=== PATIENT | female | born 1960 | race African-American/Black ===

== ENCOUNTER 2020-02-26 17:53 | Inpatient (IN) ==
[2020-02-26] MEDS ORDERED: LABETALOL IV ONE (18:25)
--- NOTE | 2020-02-26 19:09 | PROVIDER DOCUMENTATION ---
This chart was entered by Grace Moctezuma Scribe, acting as scribe for Sanchez Lainez MD. HPI-Headache - General Source: patient - History of Present Illness-Headache Headache Location: reports: frontal Quality of Pain: reports: sharp Severity: reports: severe Onset/Duration: reports: 2 days ago Timing: reports: still present, constant Headache Context: reports: nothing Headache History: reports: occasional headaches Any recent trauma/injury?: reports: none Headache severity at the maximum: severe Headache Exacerbated by:: reports: nothing Modifying Factors: improves with: analgesics (tylenol without relief) Associated Symptoms: reports: headache, confusion. denies: short of breath, decreased ability to walk or stand, fatigue, nausea, numbness in legs/feet, slurred speech, trouble walking, vomiting, vision changes, weakness Similar Symptoms Previously?: No Recently seen or treated by another doctor?: No <Sanchez Lainez - Last Filed: 02/26/20 19:31> - General Source: patient <iRzwana HollidayBoogie - Last Filed: 02/26/20 22:57> - General Chief Complaint: Headache Stated Complaint: HEADACHE Time Seen by Provider: 02/26/20 18:14 Allergies/Adverse Reactions: Patient Allergies Allergy/AdvReac Type Severity Reaction Status Date / Time No Known Allergies Allergy Verified 04/10/14 06:42 Home Medications: Home Medication List Medication Instructions Recorded Confirmed Last Taken Type Albuterol Sulfate Inhaler 2 puff INH Q6H PRN PRN #1 inhaler 04/10/14 04/22/15 Unknown Rx [Ventolin Hfa] Amlodipine [Norvasc] 5 mg PO DAILY 04/10/14 04/22/15 04/09/14 History Lisinopril/Hydrochlorothiazide 1 tab PO DAILY 04/10/14 04/22/15 04/09/14 History [Lisinopril-Hctz 20-25 mg Tab] Metformin HCl 1,000 mg PO BID 04/10/14 04/22/15 04/09/14 History Allopurinol 1 tab PO DAILY 04/22/15 04/22/15 Unknown History Amoxicillin/Pot Clavulanate 875 mg PO Q12HR #14 tablet 04/22/15 Unknown Rx [Augmentin] Carvedilol 1 tab PO BID 04/22/15 04/22/15 Unknown History Cephalexin 1 cap PO TID 04/22/15 04/22/15 Unknown History Hydrocodone/Acetaminophen [[place] 1 each PO Q4-6H PRN PRN #20 tablet 04/22/15 Unknown Rx 7.5-325 Tablet] Methylprednisolone [Medrol Dosepak] 4 mg PO DIRECTED #1 package 04/22/15 Unknown Rx Omeprazole 1 tab PO DAILY 04/22/15 04/22/15 Unknown History - History of Present Illness-Headache Nature of Presenting Problem: pt is a 59 yr old female presenting with 2 day complaint of constant, sharp frontal headache. pt denies any nausea, vomiting, denies vision changes, admits she feels confused. pt denies hx of headaches, admits hx of HTM and diabetes. pt reports no relief with Tylenol. (Sanchez Lainez) Review of Systems - Adult - REVIEW OF SYSTEMS - ADULT Constitutional: denies: chills, fever Eyes: denies: blurred vision, double vision Ears, Nose, Mouth & Throat: denies: ear pain, sinus problem, throat pain Cardiovascular: denies: chest pain, palpitations, syncope Respiratory: denies: cough, shortness of breath Gastrointestinal: denies: nausea, vomiting Genitourinary: reports: no symptoms reported Musculoskeletal: reports: no symptoms reported Integumentary: reports: no symptoms reported Neurological: reports: headache/migraines, other (confusion). denies: dizziness/vertigo, syncope Psychiatric: reports: no symptoms reported Endocrine: reports: no symptoms reported Hematologic/Lymphatic: reports: no symptoms reported Allergic/Immunologic: reports: no symptoms reported All Other Systems: Reviewed and Negative <Sanchez Lainez - Last Filed: 02/26/20 19:31> Past History - Adult - PAST MEDICAL HISTORY-ADULT Review of Records: reports: Nursing Assessment Review, Medications Reviewed, Social history reviewed & non-contributory. Major Childhood Illnesses: reports: denies history Cardiovascular: reports: HTN Respiratory: reports: bronchitis Gastrointestinal: reports: denies history Obstetrical/Gynecological: reports: endometriosis Genitourinary: reports: denies history Musculoskeletal: reports: denies history Neurological: reports: denies history Endocrine/Immune: reports: Diabetes Other Conditions: reports: denies history - PRIOR SURGERIES/PROCEDURES Surgical/Procedure History: reports: - IMMUNIZATION STATUS Childhood Immunizations: See Nurse Assessment Flu Vaccine: See Nurse Assessment - FAMILY HISTORY Family History: reviewed, not pertinent - SOCIAL HISTORY Smoking: denies Substance Use: denies <Sanchez Lainez - Last Filed: 02/26/20 19:31> Physical Exam- Neurological - Physical Exam-Neuro Initial Vital Signs Reviewed: Yes General Appearance: alert, no apparent distress, obese, slow to respond (apeears to have to think before responding) Eye Exam: left eye: normal inspection, PERRL HENMT: normocephalic/atraumatic Head Injury: no evidence of injury Neck: non-tender, full range of motion, supple, normal inspection Respiratory: chest non-tender, lungs clear, normal breath sounds Cardiovascular: normal peripheral pulses, regular rate, rhythm Abdominal Exam: normal bowel sounds, non tender, soft Lymphatic: no adenopathy Peripheral Pulses: radial (R): 2+, radial (L): 2+ Extremity: normal range of motion, non-tender, normal inspection maintenance clerk Exam: normal hearing, normal speech, PERRL Motor/Sensory: no motor deficit, no sensory deficit Neurologic: other (CN II-XII intact) Integumentary: normal color, normal turgor, warm/dry Psych/Mental Status: normal mood/affect - Glascow Coma Scale Best Eye Response: (4) open spontaneously Best Verbal Response: (4) confused conversation (slightly confused) Best Motor Response: (6) obeys commands Total Glascow Score: 14 <Sanchez Lainez - Last Filed: 02/26/20 19:31> Progress - CT/MRI 1 CT Study: Head Impression: Normal ( Patient: NOAH MASON APARNA Date: 02/26/20MR#: [id number] : 1960DM Status: REG [facility]#: [id number] Age/Sex: 59/FRoom/Bed: Loc: ED Ordering Physician: Sanchez Lainez MD Family Physician: Rafita Leach MD Reason for Procedure: HTN, H/A Signed CT HEAD W/O CONTRAST - 02/26/2020 INDICATION: HTN, H/A COMPARISON: None FINDINGS: The ventricles and sulci are normal in size and contour. There is mild to moderate periventricular white matter chronic microvascular ischemia. No intracranial mass or hemorrhage. The skull is intact. The sinuses mastoids and middle ears are clear. IMPRESSION: No acute disease. This exam was performed using automated exposure control, adjustment of mA or kV according to patient size, and/or use of iterative reconstruction technique Electronically signed by Que Chavez 02/26/2020 7:07 PM 02/26/201906 Interpreting Physician: Que Mukherjee MD Dictated Date/Time: 02/26/201902 cc: Sanchez Lainez MD; Rafita Leach MD) Comparison with other Films: no prior study - CHANGE OF SHIFT REPORT (ED Provider) 1 Report Given and Care Transferred to:: Mg Time of Transfer: 19:00 Items Pending: Labs <Sanchez Lainez - Last Filed: 02/26/20 19:31> - PLAN OF CARE/RESULTS Result Diagrams: 02/26/20 19:19 02/26/20 19:19 - REASSESSMENT Reassessment #1 Time Reassessed: 22:51 Status: unchanged (Patient notes that her headache is persistent. BP remains gregg vated despite labetalol and clonidine. Will admit patient to Hospitalist service.) <Rizwana Holliday - Last Filed: 02/26/20 22:57> - PLAN OF CARE/RESULTS Progress/Plan/Lab Results: Vital Signs - 8 hr 02/26/20 18:00 02/26/20 18:39 02/26/20 19:31 Temperature 97.9 F Pulse Rate 83 97 H 98 H Respiratory Rate 16 18 15 Blood Pressure 219/126 280/174 207/119 O2 Sat by Pulse Oximetry 96 95 95 02/26/20 19:45 02/26/20 20:00 02/26/20 20:15 Temperature Pulse Rate 95 H 96 H 97 H Respiratory Rate 18 14 20 Blood Pressure 208/120 175/108 183/135 O2 Sat by Pulse Oximetry 93 L 95 91 L 02/26/20 20:45 02/26/20 22:04 Temperature Pulse Rate 96 H 88 Respiratory Rate 12 20 Blood Pressure 218/117 214/119 O2 Sat by Pulse Oximetry 97 99 Laboratory Results - last 24 hr 02/26/20 02/26/20 02/26/20 18:49 19:19 19:19 WBC 7.89 RBC 5.14 Hgb 13.8 Hct 43.5 MCV 84.6 MCH 26.8 L MCHC 31.7 L RDW Std Deviation 16.5 H Plt Count 231 MPV Not Reportable Immature Gran % (Auto) 0.4 Neut % (Auto) 87.2 H Lymph % (Auto) 4.8 L [place] % (Auto) 5.1 Eos % (Auto) 2.5 Baso % (Auto) 0.0 Immature Gran # (Auto) 0.03 Neut # (Auto) 6.88 H Lymph # (Auto) 0.38 L [place] # (Auto) 0.40 Eos # (Auto) 0.20 Baso # (Auto) 0.00 Sodium 132 L Potassium 4.8 Chloride 89 L Carbon Dioxide 27 Anion Gap 16 BUN 37 H Creatinine 1.6 H Estimated GFR/1.73 m2 40 BUN/Creatinine Ratio 23 Glucose 524 H* POC Glucose 500 H Calculated Osmolality 297 Calcium 9.0 Total Bilirubin 0.62 AST 16 ALT 22 Alkaline Phosphatase 89 Total Protein 6.6 Albumin 4.2 Globulin 2.4 Albumin/Globulin Ratio 1.8 Acetone Level NEGATIVE Orders Category Date Time Status Cardiac Monitoring DIRECTED Care 02/26/20 18:[address] HEAD W/O CONTRAST [CT] Stat Exams 02/26/20 18:25 Completed CBC WITH DIFF [HEME] Stat Lab 02/26/20 19:19 Completed COMPREHENSIVE METABOLIC PANEL [CHEM] Stat Lab 02/26/20 19:19 Completed Ketone [ACETONE SERUM] [CHEM] Stat Lab 02/26/20 19:19 Completed Clonidine [Catapres] Med 02/26/20 20:31 Discontinued 0.1 mg PO NOW ONE Insulin Human Regular [Humulin R] Med 02/26/20 20:48 Discontinued 8 unit IV NOW ONE Labetalol Med 02/26/20 18:25 Discontinued 20 mg IV NOW ONE Labetalol 1 mg/ml Drip Med 02/26/20 23:00 Ordered 0.9% Sodium Chloride Inj [Ns] 160 ml Labetalol 200 mg IV As Directed EKG [EKG] Stat Ther 02/26/20 18:25 Ordered Departure <Sanchez Lainez - Last Filed: 02/26/20 19:31> - Departure Date of Disposition Decision: 02/26/20 Time of Disposition Decision: 22:54 Certified Medical Emergency: Emergent - Critical Care Note This patient required my direct & personal management of CC.: No <Rizwana Holliday - Last Filed: 02/26/20 22:57> - Departure DIAGNOSIS: Hypertensive urgency Disposition: ADMITTED INPATIENT 09 Condition: Serious Referrals and Follow-Ups: Rafita Leach MD [Primary Care Provider] - Attestation - Physician/ DESI Attestation Patient care was provided by Advanced Practice Provider:: No The physician spent face to face time with patient:: Yes Advanced Practice Provider documentation review:: Supervising physician onsite and consulted in the evaluation and care of this patient. The physician did have a face to face encounter with the patient. <Sanchez Lainez - Last Filed: 02/26/20 19:31> - Physician/ DESI Attestation Patient care was provided by Advanced Practice Provider:: No The physician spent face to face time with patient:: Yes Advanced Practice Provider documentation review:: Supervising physician onsite and consulted in the evaluation and care of this patient. The physician did have a face to face encounter with the patient. <Rizwana Holliday - Last Filed: 02/26/20 22:57> This chart was documented by the indicated scribe, (Grace Moctezuma Scribe) and accurately reflects the services I performed and decisions made by me, Sanchez Lainez MD, as attested by the provider's signature.
[2020-02-26 19:45] LABS: EOS% 2.5 % (0.0-10.0); HEMATOCRIT 43.5 % (37.0-47.0); HEMOGLOBIN 13.8 g/dL (12.0-16.0); IMM GRAN# 0.03 X1000 (0.0-0.04); IMM GRAN% 0.4 % (0.0-0.5); LYMPH# 0.38 X1000 (1.2-3.4); LYMPH% 4.8 % (20.5-51.1); MCH 26.8 PG (27-31); MCHC 31.7 g/dL (33-37); MCV 84.6 FL (81-99); MONO% 5.1 % (1.7-9.3); NEUT# 6.88 X1000 (1.4-6.5); NEUT% 87.2 % (42.2-75.2); PLT 231 X1000 (130-400); RBC 5.14 XMIL (4.2-5.4); RDW 16.5 % (11.5-14.5); WBC 7.89 X1000 (4.8-10.8)
[2020-02-26] MEDS ORDERED: CATAPRES PO ONE (20:31)
[2020-02-26 20:40] LABS: ACETONE SERUM NEGATIVE (NEGATIVE); AGAP 16; ALB/GLOB RATIO 1.8; ALBUMIN 4.2 g/dL (3.5-5.0); ALKALINE PHOSPHATASE 89 U/L (32-104); BUN 37 mg/dL (8-22); CHLORIDE 89 mmol/L (98-107); COSMO 297; CREATININE 1.6 mg/dL (0.5-0.9); ESTIMATED GFR 40; GLUCOSE 524 mg/dL (70-104); GOT 16 U/L (10-30); GPT 22 U/L (10-36); POTASSIUM 4.8 mmol/L (3.5-5.1); SODIUM 132 mmol/L (136-145); TCO2 27 mmol/L (25-35); TOTAL BILIRUBIN 0.62 mg/dL (0.20-1.00); TOTAL PROTEIN 6.6 g/dL (6.3-8.3)
[2020-02-26] MEDS ORDERED: HUMULIN R IV ONE (20:48)
[2020-02-26] MEDS ORDERED: LABETALOL 200 MG in NS 160 ML IV SCH (23:00)
[2020-02-26] MEDS ORDERED: TYLENOL PO PRN (23:33)
[2020-02-26] MEDS ORDERED: ZOFRAN IV PRN (23:33)
[2020-02-26] MEDS ORDERED: NS 500 ML IV ONE (23:33)
[2020-02-26 23:52] LABS: CHOLESTEROL 174 mg/dL (0-200); HDL 70 mg/dL (45-65); LDL 66 mg/dL; TRIGLYCERIDES 191 mg/dL (35-135); VLDL 38 mg/dL
[2020-02-26 23:56] LABS: HEMOGLOBIN A1C 8.6 % (4.8-6.0)
[2020-02-27] MEDS: HUMALOG SUBQ SCH ×7 (00:03→21:36)
[2020-02-27] MEDS: LOVENOX SUBQ SCH ×2 (00:04→23:40)
--- NOTE | 2020-02-27 02:14 | HISTORY AND PHYSICAL ---
CHIEF COMPLAINT: What stated is headache, but I believe it is actually altered mental status. HPI: This is a 59-year-old female who reportedly came in today with a headache. From what I understand she had been having complaint of constant, sharp, frontal headache. Had no nausea or vomiting or visual changes. She admitted that she felt confused on arrival to the ER provider. During my examination she was unable to even verify her name. She was able to follow all commands, but verbally while she would talk she did not answer questions appropriately. She has a past medical history of hypertension and diabetes, also endometriosis per her ER charting. Otherwise I was unable to verify any other medical history. A CT scan was obtained in the emergency room which showed no acute disease, no hemorrhage. Chest x-ray showed cardiomegaly. She will be admitted for further evaluation and treatment. PAST MEDICAL HISTORY: See HPI. PREVIOUS SURGICAL HISTORY: . SOCIAL HISTORY: I am honestly unsure. She stated that she does not smoke, drink, or use illicit drugs. FAMILY HISTORY: This was unobtainable. ALLERGIES: No known drug allergies. HOME MEDICATIONS: This was unobtainable. An order was placed for nursing to identify home medications from the pharmacy and placed in the computer. These will be restarted when appropriate. REVIEW OF SYSTEMS: This was limited per the patient's condition. She did say yes when questioned about having a headache. PHYSICAL EXAMINATION: VITAL SIGNS: Temperature 97.9, pulse 88, respirations 20, blood pressure 214/119. Oxygen saturation 99% on 2L nasal cannula. GENERAL: Very confused 59-year-old female. She is lying on the ER stretcher. She is disoriented x3, however, she does follow commands. HEENT: Head is atraumatic, normocephalic. Pupils equal, round, reactive to light. Extraocular eye movements intact. Sclera anicteric. Conjunctiva pink. Oral mucosa appears dry. NECK: Supple. No JVD. No hepatojugular reflux. Trachea is midline. No cervical lymphadenopathy. CARDIAC: S1, S2 appreciated. No murmurs, gallops or rubs. LUNGS: Expiratory wheeze noted. No rhonchi, no rales. Symmetrical rise and fall respirations. ABDOMEN: Protuberant, soft, nondistended, nontender. Bowel sounds present all 4 quadrants, normoactive. No pulsatile masses or organomegaly. EXTREMITIES: No clubbing or cyanosis, 1+ pitting edema bilateral lower extremities. NEUROLOGICAL: Disoriented x3, however, does follow commands. Cranial nerves 2- 12 appear to be grossly intact. DIAGNOSTIC DATA: CT of the head is grossly normal. Chest x-ray cardiomegaly. LABORATORY DATA: CBC within normal limits. Sodium 132, potassium 4.8, chloride 89, carbon dioxide 27, BUN 37, creatinine 1.6, glucose 524. Acetone level is negative. ASSESSMENT: 1. Cerebrovascular accident versus posterior reversible encephalopathy syndrome. 2. Poorly controlled diabetes mellitus type 2. 3. Acute kidney injury versus chronic kidney disease stage III. 4. Hypertensive heart disease. PLAN: Admit patient to ICU. Will place her on a labetalol drip. Goal systolic blood pressure of 180. MRI tomorrow morning, echocardiogram and ultrasound of carotids. As noted she will be in ICU with neuro checks. Check laboratory data. Further recommendations based on patient's clinical course. Dictated by FRANCESCA Son for Venu King MD cc: FRANCESCA Son MD Independent exam and assessment done by me at bedside with MANGA ARTIST. Start pt on Lantus and SSI, continue with Labetalol drip while simultaneously start on Clonidine and Hydralazine. Pt is AOx0 but will follow commands appropriately. MR done to rule out non focal CVA vs PRES. + wheezes on exam noted. MTDD
--- NOTE | 2020-02-27 02:19 | EKG Report ---
Test Performed on : 02/27/2020 00:32:19 AM Test Reason : HTN Blood Pressure : / mmHG Vent. Rate : 091 BPM Atrial Rate : 091 BPM P-R Int : 130 ms QRS Dur : 126 ms QT Int : 400 ms P-R-T Axes : 037 011 028 degrees QTc Int : 492 ms Normal sinus rhythm. Possible Left atrial enlargement Right bundle branch block Abnormal ECG No previous ECGs available Confirmed by Diane SEGAL, Erich Wisdom ([id number]) on 02/29/2020 9:09:36 AM
[2020-02-27] MEDS ORDERED: CARDENE 20 MG/NS 20 MG/200 ML PIGGYBACK IV SCH ×2 (02:31→03:00)
[2020-02-27] MEDS: DUONEB (A & A) INH SCH ×4 (03:10→21:00)
[2020-02-27] MEDS: CATAPRES PO SCH ×4 (03:22→21:31)
[2020-02-27] MEDS: APRESOLINE PO SCH ×4 (05:11→21:31)
[2020-02-27] MEDS: SYNTHROID PO SCH (06:05)
[2020-02-27 06:12] LABS: EOS# 0.05 X1000 (0.0-0.7); EOS% 0.5 % (0.0-10.0); HEMATOCRIT 37.5 % (37.0-47.0); HEMOGLOBIN 11.9 g/dL (12.0-16.0); IMM GRAN# 0.02 X1000 (0.0-0.04); IMM GRAN% 0.2 % (0.0-0.5); LYMPH# 0.54 X1000 (1.2-3.4); LYMPH% 5.9 % (20.5-51.1); MCH 26.8 PG (27-31); MCHC 31.7 g/dL (33-37); MCV 84.5 FL (81-99); MONO# 0.51 X1000 (0.11-0.59); MONO% 5.6 % (1.7-9.3); MPV 10.6 FL (7.4-10.4); NEUT# 8.04 X1000 (1.4-6.5); NEUT% 87.8 % (42.2-75.2); PLT 232 X1000 (130-400); RBC 4.44 XMIL (4.2-5.4); WBC 9.16 X1000 (4.8-10.8)
[2020-02-27 06:36] LABS: CALCIUM 8.6 mg/dL (8.8-10.2); CREATININE 1.4 mg/dL (0.5-0.9); POTASSIUM 3.6 mmol/L (3.5-5.1)
--- NOTE | 2020-02-27 06:43 | Diag Imaging Result Doc PS360 ---
CHEST-PORTABLE - 02/26/2020 INDICATION: htn COMPARISON: 12/15/2017 FINDINGS: Heart size is borderline enlarged. Pulmonary vascularity is normal. No infiltrates or edema. No pneumothorax or pleural effusion. IMPRESSION: Cardiomegaly. Electronically signed by Que Chavez 02/27/2020 6:41 AM
[2020-02-27 07:37] LABS: HYPOCHROM 1+; LYMPHS 8 % (21-51); MONO 10 % (1-9); SEGS 82 % (42-75)
[2020-02-27 07:38] LABS: LARGE PLATELETS 1+
[2020-02-27] MEDS: 1/2 NS 1,000 ML IV SCH ×2 (10:00→21:32)
--- NOTE | 2020-02-27 11:53 | PROGRESS NOTE ---
DATE: 02/27/2020 SUBJECTIVE: The patient seems to be recovering a little bit. She was able to say her name, but not her last name. She was oriented to place. She is not oriented to time. She is pending an MRI of the head. I do believe this is related to hypertensive encephalopathy. Her blood pressure upon admission was extremely high, and I saw some results around 280/174. She has been placed on a nicardipine drip. We will try to keep the blood pressure around 180s or so. We will decrease the blood pressure slowly. On the other hand, her glucose level was high at 524 with a hemoglobin A1c of 8.6. I will wait for the results, and then pending on those I will get Neurology Department on board. OBJECTIVE: Vital Signs: Temperature 97.3 degrees, pulse 80, respiratory rate 23, blood pressure 174/91, and oxygen saturation 94% on room air. HEENT: Head normocephalic. No trauma. PERRLA. Neck: Supple. No JVD. No masses. Central trachea. Chest: Clear to auscultation. No wheezing. No rales. Neck: Supple. Abdomen: Soft, nontender, and nondistended. No hepatosplenomegaly. Extremities: Trace edema. No clubbing. No cyanosis. Neurological: The patient is sleepy but arousable. She is following commands for me. She is able to say her name, but not her last name. She is oriented to place. She is oriented to time. LABORATORY: WBC 9.1, hemoglobin 11.9, hematocrit 37.5, and platelets 232,000. Sodium 139, potassium 3.6, chloride 96, bicarbonate 29, BUN 28, creatinine 1.4, glucose 212, and calcium 8.6. ASSESSMENT AND PLAN: 1. Encephalopathy. This could be related to her blood pressure, hypertensive encephalopathy. Her blood pressure seems to be better controlled with the nicardipine drip. We will try to be around 180. We need to rule out CVA. We will get an MRI to rule out any stroke or any other problems. 2. Hypertensive emergency. This patient came in confused. She has been placed on a nicardipine drip. I saw her blood pressure readings, and it looks like she has been in the 280s. She is still confused but getting better. 3. Poorly-controlled type 2 diabetes, seems to be a little bit better controlled at this point, but I will continue to monitor. I will also ask the swallow evaluation team to evaluate this patient. 4. Kidney dysfunction. I am not quite sure if this is a new finding or an old finding. Certainly, she has a lot of comorbidities that can cause kidney problems including hypertension and diabetes. I will monitor for now, it seems to be a little bit better compared with yesterday. 5. Obesity with a body mass index of 38.8. Aware. 6. Hypertensive heart disease. Aware. We are going to get an echocardiogram. CRITICAL CARE TIME: 35 minutes. cc: Ryne Cochran MD
[2020-02-27] MEDS: ASPIRIN PO SCH (12:14)
[2020-02-27] MEDS: HYDROCHLOROTHIAZIDE PO SCH (12:15)
[2020-02-27] MEDS: ICAR-C PO SCH (12:15)
--- NOTE | 2020-02-27 13:19 | Diag Imaging Result Doc PS360 ---
EXAM: MRI BRAIN W/O CONTRAST HISTORY: cva? TECHNIQUE: MRI brain without contrast. Axial, sagittal, and coronal images obtained in multiple sequences. COMPARISON: Head CT from 02/26/2020 FINDINGS: No recent infarct. There are chronic microvascular ischemic changes no mass or midline shift. No hydrocephalus. No epidural or subdural fluid collection. Normal orbits. IMPRESSION: Chronic ischemic changes, but no recent infarct. Electronically signed by Dash Ochoa 02/27/2020 1:17 PM
[2020-02-27] MEDS: SYMBICORT 160/4.5 MICROGM INHALER INH SCH (15:41)
--- NOTE | 2020-02-27 16:59 | Carotid Study ---
DATE: 02/27/2020 FIELD TECHNICAL SUPPORT CONSULTANT: Mary. REFERRING PHYSICIAN: Lilliana. INDICATIONS: CVA and altered mental status. FINDINGS: Bilateral carotid artery systems were visualized along their course. There was no significant atherosclerotic change, with normal velocities and a 0 to 39 percent range bilaterally with antegrade vertebrals. IMPRESSION: Overall normal appearing carotid duplex. cc: MD Daljit Gonzalez CRNP
--- NOTE | 2020-02-27 18:03 | ECHO REPORT ---
ORDER DATE: 02/27/2020 INTERPRETING PHYSICIAN: Lionel Moura MD INDICATION: Stroke. M-MODE MEASUREMENTS: Left ventricle end diastole: 4.4 cm. Left ventricle end systole: 2.6 cm. Posterior wall: 1.3 cm. Interventricular septum: 1.4 cm. Left atrium: 3.0 cm. Aortic diameter: 2.8 cm. SUMMARY OF 2-DIMENSIONAL IMAGIN. Left ventricular function appears to be at the lower limits of normal. Ejection fraction is 50% to 55%. There is moderate concentric LVH. 2. The aortic valve looks grossly normal. Color flow mapping is unremarkable. 3. The mitral valve looks morphologically normal. Color flow mapping shows an eccentric jet of regurgitation that appears to be mild to moderate in severity. 4. The aortic valve has three cusps. Color flow mapping is unremarkable. 5. The pulmonic valve shows mild degree of regurgitation. 6. The pulse wave Doppler of mitral inflow shows marked reversal of the E and the A ratio. Ratio is 0.5. 7. Tissue Doppler of septal and lateral mitral annulus averages less than 2 cm. That signifies severely impaired diastolic function. 8. The left atrium appears to be moderately enlarged. There is prominence of the left atrial appendage. 9. The right-sided chambers appear to be normal. 10.There is no pericardial effusion, mass, and no thrombus. 11.The inferior vena cava is not dilated. 12.Pulmonary pressure appears to be in the neighborhood of 24 to 29 mmHg. Clinical correlation is recommended. cc: MD Daljit Martinez CRNP
[2020-02-27 18:18] LABS: URINE SOURCE CATH
[2020-02-27 18:21] LABS: BILIRUBIN URINE NEGATIVE (NEGATIVE); BLOOD URINE NEGATIVE (NEGATIVE); COLOR YELLOW; GLUCOSE URINE NEGATIVE (NEGATIVE); KETONE URINE NEGATIVE (NEGATIVE); LEUKOCYTES URINE NEGATIVE (NEGATIVE); NITRITE URINE NEGATIVE (NEGATIVE); PH URINE 6.5; PROTEIN URINE 100 mg/dL (NEGATIVE); SP GRAVITY URINE 1.016; TURBIDITY URINE CLEAR (CLEAR); UROBILINOGEN URINE NORMAL (NORMAL)
[2020-02-27 18:23] LABS: UR EPITHELIAL CELLS <10 /HPF (<10); URINE BACTERIA NEGATIVE /HPF; URINE RBC <10 /HPF (<10); URINE WBC <10 /HPF (<10)
[2020-02-27] MEDS: SINGULAIR PO SCH (20:26)
[2020-02-28] MEDS: HUMALOG SUBQ SCH ×6 (01:56→21:24)
[2020-02-28] MEDS: DUONEB (A & A) INH SCH ×4 (04:30→21:05)
[2020-02-28] MEDS: APRESOLINE PO SCH ×3 (04:52→21:24)
[2020-02-28 06:05] LABS: CALCIUM 7.4 mg/dL (8.8-10.2); CREATININE 1.5 mg/dL (0.5-0.9); MAGNESIUM 1.3 mg/dL (1.5-2.7); PHOSPHORUS 4.3 mg/dL (2.7-4.5); POTASSIUM 3.3 mmol/L (3.5-5.1)
[2020-02-28] MEDS: SYNTHROID PO SCH (06:09)
[2020-02-28] MEDS ORDERED: MAGNESIUM SULFATE 2 GM/S.W.I. 2 GM/50 ML IVPB IV ONE (07:14)
[2020-02-28] MEDS ORDERED: KLOR-CON PO ONE (07:15)
[2020-02-28] MEDS: ASPIRIN PO SCH (09:02)
[2020-02-28] MEDS: ICAR-C PO SCH (09:02)
[2020-02-28] MEDS: CATAPRES PO SCH (09:03)
[2020-02-28] MEDS: HYDROCHLOROTHIAZIDE PO SCH (09:03)
[2020-02-28] MEDS: SYMBICORT 160/4.5 MICROGM INHALER INH SCH (09:37)
[2020-02-28] MEDS: MIRALAX PO SCH (10:45)
[2020-02-28] MEDS: 1/2 NS 1,000 ML IV SCH (10:45)
[2020-02-28] MEDS: TESSALON PO SCH ×2 (10:45→16:18)
[2020-02-28] MEDS ORDERED: 1/2 NS 1,000 ML IV SCH (12:02)
--- NOTE | 2020-02-28 12:30 | PROGRESS NOTE ---
DATE: 02/28/2020 SUBJECTIVE: The patient seems to be doing much better. She is completely awake, alert, and oriented. Her blood pressure has been better controlled. I have adjusted her home medications. I will transfer this patient to the PVC unit. OBJECTIVE: Vital Signs: Temperature 98.8 degrees, pulse 82, respiratory rate 16, blood pressure 144/82, oxygen saturation 94% on room air. HEENT: Head normocephalic. No trauma. PERRLA. Neck: Supple. No JVD. No masses. Central trachea. Chest: Clear to auscultation. No wheezing. No rales. Abdomen: Soft, nontender, nondistended. No hepatosplenomegaly. Extremities: Trace edema. No clubbing. No cyanosis. Neurological: The patient is awake and alert. She is oriented. She does have generalized weakness. LABORATORY: Sodium 136, potassium 3.3, chloride 95, bicarbonate 26, BUN 31, creatinine 1.5, glucose 155. Calcium 7.4. Magnesium 1.3. ASSESSMENT AND PLAN: 1. Encephalopathy, likely related to her severe hypertension, likely hypertensive encephalopathy. This seems to be much better MRI without any new issues. 2. Hypertensive urgency. The patient came in confused but now is much better, basically resolved. 3. Poorly-controlled type 2 diabetes. Continue home medication and pattern of blood sugar and sliding scale insulin. 4. Kidney dysfunction. I am not sure if this is new or old. Certainly, she has a lot of comorbidities that can cause kidney problems including hypertension and uncontrolled diabetes. We will monitor for now. 5. Obesity, with a body mass index of 38.8. Aware. 6. Hypertensive heart disease. We already asked for an echocardiogram that showed a good ejection fraction, but left ventricular hypertrophy. We will monitor for now. 7. Hypomagnesemia and hypokalemia. I will replace both. cc: Ryne Cochran MD
[2020-02-28] MEDS: GLUCOPHAGE PO SCH (16:18)
[2020-02-28] MEDS ORDERED: LIPITOR PO SCH (21:00)
[2020-02-28] MEDS: LOVENOX SUBQ SCH (21:24)
[2020-02-28] MEDS: SINGULAIR PO SCH (21:24)
[2020-02-28] MEDS: COREG PO SCH (21:24)
[2020-02-29] MEDS: HUMALOG SUBQ SCH ×3 (01:03→10:29)
[2020-02-29] MEDS: DUONEB (A & A) INH SCH ×2 (03:55→09:38)
[2020-02-29] MEDS: APRESOLINE PO SCH (05:49)
[2020-02-29] MEDS: TESSALON PO SCH (05:49)
[2020-02-29] MEDS: GLUCOPHAGE PO SCH ×2 (05:49→06:06)
[2020-02-29] MEDS: SYNTHROID PO SCH ×2 (05:49→06:06)
[2020-02-29] MEDS: PROTONIX PO SCH ×2 (05:49→06:06)
[2020-02-29 07:01] LABS: ALB/GLOB RATIO 1.1; ALBUMIN 3.1 g/dL (3.5-5.0); CALCIUM 8.1 mg/dL (8.8-10.2); CREATININE 1.4 mg/dL (0.5-0.9); TOTAL BILIRUBIN 0.89 mg/dL (0.20-1.00); TOTAL PROTEIN 5.8 g/dL (6.3-8.3)
[2020-02-29 07:51] VITALS: BP 149/84
[2020-02-29] MEDS: COREG PO SCH (08:09)
[2020-02-29] MEDS: HYDROCHLOROTHIAZIDE PO SCH (08:10)
[2020-02-29] MEDS: ICAR-C PO SCH (08:18)
[2020-02-29] MEDS: MIRALAX PO SCH (08:18)
[2020-02-29] MEDS: ASPIRIN PO SCH (08:18)
[2020-02-29] MEDS ORDERED: ZYLOPRIM PO SCH (09:00)
[2020-02-29] MEDS ORDERED: COZAAR PO SCH (09:00)
[2020-02-29] MEDS: SYMBICORT 160/4.5 MICROGM INHALER INH SCH (09:38)
--- NOTE | 2020-02-29 14:37 | DISCHARGE SUMMARY ---
ADMISSION DATE: 02/26/2020 DISCHARGE DATE: 02/29/2020 DISCHARGE DIAGNOSES: 1. Encephalopathy, resolved. Likely related to hypertensive encephalopathy. 2. Hypertensive urgency. 3. Poorly-controlled type 2 diabetes. 4. Kidney dysfunction, likely chronic. 5. Obesity with a body mass index of 38.8. 6. Hypertensive heart disease. 7. Hypomagnesemia and hypokalemia, resolved. PROCEDURES PERFORMED: 1. Head CT scan dated 02/25 impression: No acute disease. 2. Chest x-ray dated 02/25 impression: Cardiomegaly. 3. Brain MRI dated 02/27/2020 impression: Chronic ischemic changes, but no recent infarct. 4. Carotid Doppler ultrasound dated 02/27/2020 impression: Overall normal appearing carotid Doppler. 5. Echocardiogram dated 02/27/2020: Ejection fraction 50 to 55 percent with moderate concentric left ventricular hypertrophy. HOSPITAL COURSE: A 59-year-old female with a past medical history of diabetes, hypertension, dyslipidemia presented and was admitted on 02/26/2020 due to mental status changes and headache. It looks like she was complaining of constant sharp frontal headache not associated with nausea, vomiting or visual changes, but she was confused on arrival to the ER. During the examination by the admitting physician, she was unable to even verify her name. She was able to follow commands. Also, she has a history of endometriosis. CT scan did not show any abnormality, but the blood pressure and the blood sugar were high. The blood sugar improved after treatment, and she was sent to the ICU with Cardene drip. We were able to improve her blood pressure. The rest of the studies including the carotid ultrasound, echocardiogram, and brain MRI did not show any acute problem. As soon as we took care of the blood pressure, her mental status recovered completely, and she was basically asymptomatic. We readjusted her medications, and she has been doing well with that. Today, she wants to go home. She is feeling fine. I had a large conversation with this patient about her treatment and diet. Her hemoglobin A1c was a little bit elevated, but not that bad, so I will continue with the same management at home, and I asked her to do more physical activity and diet. She does have morbid obesity with a body mass index of 38.8. She will follow up with her primary care doctor in 1 to 2 weeks. I asked the patient to follow up with Nephrology Department. She will need to call next week to set up an appointment 3 to 4 weeks from now, and she was given their phone number as well. Since she seems to be stable, tolerating p.o. and ambulating, vital signs are stable as well. PHYSICAL EXAMINATION: Vital Signs: Temperature 97.2 degrees, pulse 95, respiratory rate 18, blood pressure 149/84, oxygen saturation 96 on room air. HEENT: Head normocephalic, no trauma. PERRLA. Neck: Neck is supple. No JVD. No masses. Central trachea. Chest: Clear to auscultation. No wheezing. No rales. Abdomen: Soft, nontender, nondistended. No hepatosplenomegaly. Extremities: Trace edema. No clubbing, no cyanosis. Neurological examination: The patient is awake, alert. She is oriented x3. No focal deficits. LABORATORY: Sodium 136, potassium 4, chloride 99, bicarbonate 25. BUN 27, creatinine 1.4, glucose 166 and calcium 8.1. Normal LFTs. Albumin 3.1. DISCHARGE MEDICATIONS: 1. Albuterol sulfate inhaler 2 puffs inhaled q. 6 hours as needed. 2. Allopurinol 300 mg p.o. daily. 3. Aspirin 81 mg p.o. daily. 4. Atorvastatin 10 mg p.o. at bedtime/ 5. Tessalon 100 mg p.o. q. 8 hours as needed for cough. 6. Symbicort inhaler 160/4.5 mcg daily. 7. Carvedilol 25 mg p.o. b.i.d. 8. Trulicity 0.75 mg subcutaneous as directed. 9. Hydralazine 50 mg p.o. q. 8 hours. 10. Hydrochlorothiazide 25 mg p.o. daily. 11. Iron carbonyl/ascorbic acid one tablet p.o. daily. 12. Levocetirizine 1 tablet p.o. q.p.m. 13. Levothyroxine 50 mcg p.o. q.a.m. 14. Losartan 25 mg p.o. daily. 15. Metformin 1000 mg p.o. b.i.d. 16. Singulair 10 mg p.o. q.p.m. 17. Omeprazole 40 mg p.o. daily. 18. MiraLAX 17 g p.o. daily. TIME DISCHARGING THIS PATIENT: 32 minutes. cc: Ryne Cochran MD
== END 2020-02-29 10:49 | disposition home or self-care (01) | DRG 79 ==
LOC: ED 17:53 → ICU 17:54 → SUATTDRO 17:54 → 2N 02-28 13:02
PROVIDERS: ATTEND Internal Medicine